=== PATIENT | male | born 1995 | race Caucasian/White ===

== ENCOUNTER 2024-05-01 20:52 | Emergency (ER) | payer BC, OTHER ==
[~2024-05-01] VITALS: Ht 177.8 cm; Wt 74.8 kg
[2024-05-01] MEDS: BOOSTRIX VACCINE (TETANUS/DIPHTH/ACEL. PERTUSSIS) 0.5ML SYR IM ONE (21:50)
[2024-05-01] MEDS: LIDOCAINE 1% MDV 20ML VIAL SC ONE (22:35)
[2024-05-01 23:05] VITALS: BP 129/69; TEMP 97.7; O2SAT 99
== END 2024-05-01 23:06 | disposition home or self-care (01) ==
LOC: M ED 20:52
DX: S61.215A Laceration without foreign body of left ring finger without damage to nail, initial encounter (principal); Y92.9 Unspecified place or not applicable; Y93.9 Activity, unspecified; Y99.0 Civilian activity done for income or pay; Z23 Encounter for immunization